=== PATIENT | female | born 1970 | race African-American/Black ===

== ENCOUNTER 2017-08-15 11:18 | Observation (INO) ==
[2017-08-15 12:32] LABS: Basophils % 0.4 % (0.0-0.8); Eosinophils # 0.1 10*3/uL (0.0-0.87); Eosinophils % 0.8 % (0.00-10.9); Hematocrit 40.2 VOL% (35.7-47.0); Hemoglobin 13.8 GM/DL (12.0-16.0); Immature Granulocytes % 0.4 %; Immature Granulocytes Absolute 0.03 #; Lymphocytes # 1.8 10*3/uL (1.4-4.0); Lymphocytes % 23.6 % (21.3-54.2); Mean Corpuscular HGB Conc 34.3 GM/DL (32-36); Mean Corpuscular Hemoglobin 31 PG (27-34); Mean Corpuscular Volume 88.7 FL (87-102); Mean Platelet Volume 11.8 FL (9.6-12.0); Monocytes # 0.7 10*3/uL (0.11-0.8); Monocytes % 9.3 % (1.7-12.7); Neutrophils # 4.9 10*3/uL (1.4-7.4); Neutrophils % 65.5 % (38.7-73.9); Platelet Count 240 T/CUMM (130-400); Red Blood Count 4.53 MC/CUMM (3.8-5.5); Red Cell Distribution Width 12.2 % (9.3-17.3); White Blood Count 7.4 T/CUMM (4-12)
[2017-08-15 12:34] LABS: Apearance,Urine CLEAR (Clear); Bilirubin,Urine Negative (Negative); Blood, Urine Negative (Negative); Glucose,Urine (UA) >=500 mg/dL (Negative); Ketones,Urine Negative (Negative); Nitrite,Urine Negative (Negative); Protein,Urine Negative; Squamous Epithelial Cell,Urine Occasional /HPF (0-10); Urine Color Colorless (Yellow); Urine Specific Gravity 1.028 (1.001-1.035); Urine Urobilinogen < 2.0 EU/DL (0.2-1.0); WBC,Urine <1 /HPF (0-6)
[2017-08-15 12:51] LABS: Albumin 3.8 G/DL (3.4-5.0); Bilirubin,Total 0.8 MG/DL (0.2-1.0); Calcium 8.4 MG/DL (8.5-10.1); Osmolality,Calculated 290.2 MOS/KG (273-304); Potassium 4.2 MMOL/L (3.5-5.1); Total Protein 7.9 G/DL (6.4-8.3)
[2017-08-15] MEDS ORDERED: INSULIN REGULAR 100 UNIT/ML IV STA ×2 (13:56→14:46)
[2017-08-15] MEDS ORDERED: INSULIN NPH/REGULAR 70/30 100 UNIT/ML SUBCUT ONE (13:59)
[2017-08-15] MEDS ORDERED: SODIUM CHLORIDE 0.9% 2,000 ML IV STA (14:04)
[2017-08-15] MEDS ORDERED: INSULIN LISPRO 100 UNIT/ML ONE (14:58)
[2017-08-15] MEDS ORDERED: DEXTROSE 50% 25 GM/50 ML VIAL IV PRN (17:28)
[2017-08-15] MEDS ORDERED: GLUCAGON 1 MG VIAL IM PRN (17:28)
[2017-08-15] MEDS ORDERED: MORPHINE 4 MG/1 ML VIAL IV PRN (18:31)
[2017-08-15] MEDS ORDERED: DOCUSATE SODIUM 100 MG CAPSULE PO PRN (18:31)
[2017-08-15] MEDS ORDERED: ACETAMINOPHEN 325 MG TABLET PO PRN (18:31)
[2017-08-15] MEDS ORDERED: LACTULOSE 20 GM/30 ML UDCUP PO PRN (18:31)
[2017-08-15] MEDS ORDERED: ONDANSETRON 4 MG/2 ML VIAL IV PRN (18:31)
[2017-08-15] MEDS: SODIUM CHLORIDE 0.9% 1,000 ML IV SCH (20:42)
[2017-08-15] MEDS: PANTOPRAZOLE 40 MG TABLET PO SCH (20:43)
[2017-08-15] MEDS: INSULIN REGULAR 100 UNIT/ML SUBCUT SCH (20:43)
[2017-08-15] MEDS: ATORVASTATIN 10 MG TABLET PO SCH (20:43)
[2017-08-15] MEDS: GABAPENTIN 100 MG CAPSULE PO SCH (20:43)
[2017-08-15] MEDS ORDERED: FAMOTIDINE 20 MG TABLET PO SCH (21:00)
[2017-08-16] MEDS: SODIUM CHLORIDE 0.9% 1,000 ML IV SCH ×3 (04:58→20:35)
[2017-08-16 05:36] LABS: Basophils % 0.6 % (0.0-0.8); Eosinophils # 0.2 10*3/uL (0.0-0.87); Eosinophils % 2.4 % (0.00-10.9); Hematocrit 35.6 VOL% (35.7-47.0); Hemoglobin 11.9 GM/DL (12.0-16.0); Immature Granulocytes % 0.3 %; Immature Granulocytes Absolute 0.02 #; Lymphocytes # 2.3 10*3/uL (1.4-4.0); Lymphocytes % 31.9 % (21.3-54.2); Mean Corpuscular HGB Conc 33.4 GM/DL (32-36); Mean Corpuscular Hemoglobin 30 PG (27-34); Mean Corpuscular Volume 90.6 FL (87-102); Mean Platelet Volume 11.7 FL (9.6-12.0); Monocytes # 0.8 10*3/uL (0.11-0.8); Monocytes % 11.2 % (1.7-12.7); Neutrophils # 3.8 10*3/uL (1.4-7.4); Neutrophils % 53.6 % (38.7-73.9); Platelet Count 202 T/CUMM (130-400); Red Blood Count 3.93 MC/CUMM (3.8-5.5); Red Cell Distribution Width 12.1 % (9.3-17.3); White Blood Count 7.1 T/CUMM (4-12)
[2017-08-16 06:17] LABS: Calcium 7.5 MG/DL (8.5-10.1); Osmolality,Calculated 290.4 MOS/KG (273-304); Potassium 3.9 MMOL/L (3.5-5.1); Risk Ratio 3.05; VLDL CHOLESTEROL 16.4 MG/DL
[2017-08-16] MEDS ORDERED: INSULIN NPH/REGULAR 70/30 100 UNIT/ML SUBCUT SCH (07:30)
[2017-08-16] MEDS ORDERED: glipiZIDE 10 MG TABLET PO SCH (07:30)
[2017-08-16] MEDS ORDERED: PANTOPRAZOLE 40 MG TABLET PO SCH (09:00)
[2017-08-16] MEDS: INSULIN NPH/REGULAR 70/30 100 UNIT/ML SUBCUT SCH ×2 (09:09→16:25)
[2017-08-16] MEDS: INSULIN REGULAR 100 UNIT/ML SUBCUT SCH ×4 (09:10→20:31)
[2017-08-16] MEDS: metFORMIN 500 MG TABLET PO SCH ×2 (09:11→16:24)
[2017-08-16] MEDS: MELOXICAM 7.5 MG TABLET PO SCH (09:11)
[2017-08-16] MEDS: GABAPENTIN 100 MG CAPSULE PO SCH ×3 (09:11→20:31)
[2017-08-16] MEDS: hydroCHLOROthiazide 25 MG TABLET PO SCH (09:11)
[2017-08-16] MEDS: glipiZIDE 10 MG TABLET PO SCH (16:27)
[2017-08-16] MEDS: PANTOPRAZOLE 40 MG TABLET PO SCH (20:30)
[2017-08-16] MEDS: ATORVASTATIN 10 MG TABLET PO SCH (20:31)
[2017-08-17] MEDS: SODIUM CHLORIDE 0.9% 1,000 ML IV SCH (05:43)
[2017-08-17 06:02] LABS: Calcium 7.5 MG/DL (8.5-10.1); Osmolality,Calculated 280.3 MOS/KG (273-304); Potassium 3.3 MMOL/L (3.5-5.1)
[2017-08-17 08:06] VITALS: BP 113/85
[2017-08-17] MEDS ORDERED: POTASSIUM CHLORIDE 20 MEQ TABLET PO SCH (09:00)
[2017-08-17] MEDS: MELOXICAM 7.5 MG TABLET PO SCH (09:10)
[2017-08-17] MEDS: metFORMIN 500 MG TABLET PO SCH (09:10)
[2017-08-17] MEDS: GABAPENTIN 100 MG CAPSULE PO SCH (09:11)
[2017-08-17] MEDS: INSULIN REGULAR 100 UNIT/ML SUBCUT SCH (09:12)
[2017-08-17] MEDS: hydroCHLOROthiazide 25 MG TABLET PO SCH (09:12)
[2017-08-17] MEDS: INSULIN NPH/REGULAR 70/30 100 UNIT/ML SUBCUT SCH (09:15)
[2017-08-17] MEDS: glipiZIDE 10 MG TABLET PO SCH (09:15)
== END 2017-08-17 11:27 | disposition home or self-care (01) ==
LOC: N.EDINP 11:18 → N.ED 11:18 → N.4E 16:25